=== PATIENT | male | born 1955 | race Two or more races ===

== ENCOUNTER 2018-02-05 12:27 | Inpatient (IN) | payer BC ==
[2018-02-05 13:48] VITALS: BMI 22.7
--- NOTE | 2018-02-05 14:31 | HP ---
COWS - Scale Resting Pulse: 0= [place] 80 or Below Sweatin=Flushed/Facial Moisture Restless Observation: 3= Extraneous Movement Pupil Size: 2= Moderately Dilated Bone or Joint Aches: 2= Severe Diffuse Aches Runny Nose/ Eye Tearin= Runny Nose/Eyes GI Upset > 30mins: 3= Vomiting/Diarrhea Tremor Observation: 2= Slight Tremor Visible Yawning Observation: 2= >3x During Session Anxiety or Irritability: 2=Irritable/Anxious Goose Flesh Skin: 0=Smooth Skin COWS Score: 20 Admission ROS BHS - HPI Chief Complaint: I NEED HELP TO STOP USING HEROIN,ALCOHOL,STREET METHADONE Allergies/Adverse Reactions: Allergies Allergy/AdvReac Type Severity Reaction Status Date / Time No Known Allergies Allergy Verified 02/05/18 14:26 History of Present Illness: THIS 62 YEARS OLD WITH HEROIN,ALCOHOL,STREET METHADONE,SEEKING DETOX,WITHDRAWAL SYMPTOM,LAST DETOX [facility] 06/03/13 TO 06/08/17 HEPATITIS C TREATED NICOTINE DEPENDENCE LONGEST PERIOD OF SOBRIETY 12 YEARS WEIGHT LOSS BIPOLAR DISORDER Exam Limitations: No Limitations - Ebola screening Have you traveled outside of the country in the last 21 days: No Have you had contact with anyone from an Ebola affected area: No Have you been sick,other than usual withdrawal symptoms: No Do you have a fever: No - Review of Systems Constitutional: Chills, Loss of Appetite, Malaise, Night Sweats, Changes in sleep, Weakness, Unintentional Wgt. Loss EENT: reports: Tearing, Nose Congestion Respiratory: reports: No Symptoms reported Cardiac: reports: No Symptoms Reported, Palpitations GI: reports: Diarrhea, Nausea, Vomiting, Abdominal cramping : reports: No Symptoms Reported Musculoskeletal: reports: Back Pain, Joint Pain, Muscle Pain, Neck Pain Integumentary: reports: Dryness Endocrine: reports: No Symptoms Reported Hematology: reports: No Symptoms Reported Psychiatric: reports: No Sypmtoms Reported, Judgement Intact, Mood/Affect Appropiate, other (BIPOLAR DISORDER) Patient History - Patient Medical History Hx Anemia: No Hx Asthma: No Hx Chronic Obstructive Pulmonary Disease (COPD): No Hx Cancer: No Hx Cardiac Disorders: No Hx Congestive Heart Failure: No Hx Hypertension: No Hx Hypercholesterolemia: No Hx Pacemaker: No HX Cerebrovascular Accident: No Hx Seizures: No Hx Diabetes: No Hx Gastrointestinal Disorders: No Hx Genitourinary Disorders: No Hx Sexually Transmitted Disorders: No Hx Renal Disease (ESRD): No Hx Thyroid Disease: No Hx Human Immunodeficiency Virus (HIV): No (2014 LAST NEGATIVE) Hx Hepatitis C: Yes (TREATED) Hx Depression: Yes (TAQUERIA,MARCELLE,BRENDA,LEXAPRO) Hx Suicide Attempt: No Hx Bipolar Disorder: No Hx Schizophrenia: No Other Medical History: NO SUICIDAL,NOHOMICIDAL - Patient Surgical History Past Surgical History: Yes Hx Neurologic Surgery: No Hx Cataract Extraction: No Hx Cardiac Surgery: No Hx Lung Surgery: No Hx Breast Surgery: No Hx Breast Biopsy: No Hx Abdominal Surgery: No Hx Appendectomy: No Hx Cholecystectomy: No Hx Genitourinary Surgery: No Hx Section: No Hx Orthopedic Surgery: No Other Surgical History: NASAL SX.IN 2008 Anesthesia Reaction: No - PPD History Documented Results: Positive w/o proof Implanted On Prior [facility] Admission?: No PPD to be Administered?: No - Smoking Cessation Smoking history: Current every day smoker Have you smoked in the past 12 months: Yes Aproximately how many cigarettes per day: 20 Hx Chewing Tobacco Use: No Initiated information on smoking cessation: Yes 'Breaking Loose' booklet given: 02/05/18 - Substance & Tx. History Hx Alcohol Use: Yes Hx Substance Use: Yes Substance Use Type: Alcohol, Heroin Hx Substance Use Treatment: Yes ([facility] 06/03/13 TO 06/08/13) - Substances Abused Heroin Route: Inhalation Frequency: Daily Amount used: 15 bags daily Age of first use: 19 Date of Last Use: 02/05/18 Alcohol Route: Oral Frequency: Daily Amount used: 8-9 16 [place], 2 [place], Age of first use: 19 Date of Last Use: 02/05/[address] M[address]ONE Frequency: 1-3 times last 30 days Amount used: 120 MG TAB Age of first use: 36 Date of Last Use: 02/05/18 Family Disease History - Family Disease History Family Disease History: Other: Father (ALCOHOL), Brother (DRUGS) Admission Physical Exam BHS - Vital Signs Vital Signs: Vital Signs - 24 hr 02/05/18 13:43 Temperature 97 F L Pulse Rate 58 L Respiratory 20 Rate Blood Pressure 120/64 - Physical General Appearance: Yes: Moderate Distress, Tremorous, Irritable, Sweating, Anxious HEENTM: Yes: LEONA, Pharynx Normal, Other (FX OF NASAL BONE) Respiratory: Yes: Lungs Clear, Normal Breath Sounds, No Respiratory Distress Neck: Yes: No masses,lesions,Nodules, Supple, Trachea in good position Breast: Yes: Within Normal Limits Cardiology: Yes: Within Normal Limits, Regular Rhythm, Regular Rate, S1, S2 Abdominal: Yes: Within Normal Limits, Normal Bowel Sounds, Non Tender, Flat, Soft Genitourinary: Yes: Within Normal Limits Back: Yes: Muscle Spasm Musculoskeletal: Yes: Back pain, Muscle Pain Extremities: Yes: Tremors Neurological: Yes: 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 NML intact, Fully Oriented, Alert, Motor Strength 5/5 Integumentary: Yes: Dry Lymphatic: Yes: Within Normal Limits - Diagnostic (1) Opioid dependence with withdrawal Current Visit: Yes Status: Acute (2) Alcohol dependence with uncomplicated withdrawal Current Visit: Yes Status: Acute (3) Hepatitis C Current Visit: Yes Status: Acute (4) Fracture of nasal bone Current Visit: Yes Status: Acute (5) Weight loss Current Visit: Yes Status: Acute (6) Bipolar disorder Current Visit: Yes Status: Acute Cleared for Admission [facility] - Detox or Rehab [facility] Level of Care: Medically Managed Detox Regimen/Protocol: Methadone/Librium [facility] Breath Alcohol Content Breath Alcohol Content: 0.011 Urine Drug Screen - Results Drug Screen Negative: No Urine Drug Screen Results: OPI-Opiates, BZO-Benzodiazepines, MTD-Methadone
[2018-02-05] MEDS ORDERED: LOPERAMIDE HCL 2 MG CAPSULE PO PRN (14:55)
[2018-02-05] MEDS ORDERED: guaiFENesin/D-METHORPHAN HB 10 ML UNIT-DOSE CUPS PO PRN (14:55)
[2018-02-05] MEDS ORDERED: P-EPHED 60MG/TRIPROLIDI 2.5MG TABLET PO PRN (14:55)
[2018-02-05] MEDS ORDERED: hydrOXYzine PAMOATE 50 MG CAPSULE (FP) PO PRN (14:55)
[2018-02-05] MEDS ORDERED: NICOTINE POLACRILEX 2 MG GUM BUC PRN (14:55)
[2018-02-05] MEDS ORDERED: IBUPROFEN 400 MG TABLET (FP) PO PRN (14:55)
[2018-02-05] MEDS ORDERED: MENTHOL/PHENOL 1 EACH UD MM PRN (14:55)
[2018-02-05] MEDS ORDERED: ACETAMINOPHEN 325 MG TABLET (FP) PO PRN (14:55)
[2018-02-05] MEDS ORDERED: MAG HYDROX/AL HYDROX/SIMETH 30 ML UNIT-DOSE CUP PO PRN (14:55)
[2018-02-05] MEDS ORDERED: MAGNESIUM HYDROX 2400MG/30ML ORAL SUSPENSION 30 ML CUP PO PRN (14:55)
[2018-02-05] MEDS ORDERED: MAGNESIUM CITRATE 300 ML BOTTLE PO PRN (14:55)
[2018-02-05] MEDS ORDERED: METHADONE HCL 10 MG TABLET (FOR DETOX USE ONLY) PO ONE ×2 (15:15→23:00)
[2018-02-05] MEDS ORDERED: chlordiazePOXIDE HCL 25 MG CAPSULE PO ONE (15:15)
[2018-02-05] MEDS: NICOTINE 21 MG/24 HOURS TOPICAL PATCH TD SCH (15:55)
--- NOTE | 2018-02-05 16:12 | EKG ---
Test Reason : Blood Pressure : / mmHG Vent. Rate : 055 BPM Atrial Rate : 055 BPM P-R Int : 122 ms QRS Dur : 080 ms QT Int : 434 ms P-R-T Axes : 051 -04 030 degrees QTc Int : 415 ms SINUS BRADYCARDIA OTHERWISE NORMAL ECG NO PREVIOUS ECGS AVAILABLE Confirmed by SHARMAINE BHATTI MD ([id number]) on 02/05/2018 4:12:16 PM Referred By: Confirmed By:SHARMAINE BHATTI MD
--- NOTE | 2018-02-05 17:26 | CONSULT ---
[facility] Psychiatric Consult - Data Date of interview: 02/05/18 Admission source: [facility] Identifying data: Patient is a 62 year old single male, without kids, domiciled , unemployed and receiving SSI. This is one of multiple admissions for patient. Pt. admitted to for alcohol and cocaine dependence. Substance Abuse History: - Smoking Cessation. Smoking history: Current every day smoker. Have you smoked in the past 12 months: Yes. Aproximately how many cigarettes per day: 20. Hx Chewing Tobacco Use: No. Initiated information on smoking cessation: Yes. 'Breaking Loose' booklet given: 02/05/18. - Substance & Tx. History. Hx Alcohol Use: Yes. Hx Substance Use: Yes. Substance Use Type : Alcohol, Heroin. Hx Substance Use Treatment: Yes ([facility] 06/03/13 TO 06/08/13) Medical History: Nasal sx in 2008, Hep C (treated) Psychiatric History: Patient denies h/o psychiatric hospitalizations. Patient denies current OPD. Reports h/o OPD at [facility] approximately one year ago. Diagnosis of bipolar disorder. States he has been presribed mirtzapine, abilify , ambien but was nonadherent to medications. Pt. requesting a sleep aid. Pt. denies h/o suicide attempt. Physical/Sexual Abuse/Trauma History: Denies. Mental Status Exam - Mental Status Exam Alert and Oriented to: Time, Place, Person Cognitive Function: Good Patient Appearance: Well Groomed Mood: Hopeful Affect: Mood Congruent Patient Behavior: Cooperative Speech Pattern: Clear, Appropriate Voice Loudness: Normal Thought Process: Intact, Goal Oriented Thought Disorder: Not Present Hallucinations: Denies Suicidal Ideation: Denies Homicidal Ideation: Denies Insight/Judgement: Poor Sleep: Poorly Appetite: Fair Muscle strength/Tone: Normal Gait/Station: Normal Psychiatric Findings - Problem List ([place] 1, 2,3) (1) Alcohol dependence with uncomplicated withdrawal Current Visit: Yes Status: Acute (2) Opioid dependence with withdrawal Current Visit: Yes Status: Acute (3) Insomnia Current Visit: Yes Status: Acute (4) Substance induced mood disorder Current Visit: Yes Status: Acute - Initial Treatment Plan Initial Treatment Plan: Psychoeducation provided. Detoxification in progress. Melatonin 5mg ordered for insomnia by [facility] [employer]. Will continue to monitor.
[2018-02-05] MEDS: chlordiazePOXIDE HCL 25 MG CAPSULE PO SCH ×2 (17:52→22:43)
[2018-02-05 17:58] LABS: URINE APPEARANCE SLCLOUDY; URINE BILIRUBIN NEGATIVE (<2.0 mg/dL); URINE COLOR YELLOW; URINE GLUCOSE (UA) NEGATIVE (NEGATIVE); URINE KETONE NEGATIVE (NEGATIVE); URINE LEUK ESTERASE NEGATIVE (NEGATIVE); URINE NITRITE NEGATIVE (NEGATIVE); URINE PROTEIN NEGATIVE (NEGATIVE); URINE UROBILINOGEN NEGATIVE mg/dL (0.2-1.0)
[2018-02-05] MEDS: THIAMINE HCL 100 MG TABLET (FP) PO SCH (22:43)
[2018-02-05] MEDS: MELATONIN 5 MG TABLETS PO PRN (22:45)
[2018-02-06] MEDS: chlordiazePOXIDE HCL 25 MG CAPSULE PO SCH ×4 (05:25→22:17)
[2018-02-06] MEDS ORDERED: METHADONE HCL 10 MG TABLET (FOR DETOX USE ONLY) PO SCH (10:00)
[2018-02-06 10:13] LABS: HEMATOCRIT 36.6 % (35.4-49); HEMOGLOBIN 12.5 GM/dL (11.7-16.9); MCH 30.2 pg (25.7-33.7); MCHC 34.1 g/dl (32.0-35.9); MEAN CELL VOLUME 88.7 fl (80-96); MEAN PLT VOLUME 9.8 fl (7.5-11.1); PLATELET COUNT 249 K/MM3 (134-434); RBC 4.13 M/mm3 (4.00-5.60); RDW 13.6 % (11.9-15.9); WHITE BLOOD COUNT 6.7 K/mm3 (4.0-10.0)
[2018-02-06 10:28] LABS: CHLORIDE 102 mmol/L (98-107); POTASSIUM 4.9 mmol/L (3.5-5.1); SODIUM 141 mmol/L (136-145)
[2018-02-06] MEDS: PRENATAL VITAMINS W/ FOLIC ACID TABLET (FP) PO SCH (10:33)
[2018-02-06] MEDS: NICOTINE 21 MG/24 HOURS TOPICAL PATCH TD SCH (10:33)
[2018-02-06 10:43] LABS: ALBUMIN 3.7 g/dl (3.4-5.0); ALK PHOS 76 U/L (45-117); ANION GAP 9 (8-16); BILIRUBIN,TOTAL 0.4 mg/dL (0.2-1.0); BLOOD UREA NITROGEN 17 mg/dL (7-18); CALCIUM 8.9 mg/dL (8.5-10.1); CO2 30 mmol/L (21-32); CREATININE 0.8 mg/dL (0.7-1.3); GLUCOSE,RANDOM 90 mg/dL (74-106); SGOT/AST 16 U/L (15-37); SGPT/ALT 11 U/L (12-78); TOT PROT 6.4 g/dl (6.4-8.2)
--- NOTE | 2018-02-06 13:02 | PN ---
BHS COWS - Scale Resting Pulse: 1= [place] 81-100 Sweatin= Chills/Flushing Restless Observation: 3= Extraneous Movement Pupil Size: 2= Moderately Dilated Bone or Joint Aches: 4=Acute Joint/Muscle Pain Runny Nose/ Eye Tearin= None GI Upset > 30mins: 1= Stomach Cramp Tremor Observation of Outstretched Hands: 1= Tremor [place], Not Seen Yawning Observation: 1= 1-2x During Session Anxiety or Irritability: 2=Irritable/Anxious Goose Flesh Skin: 0=Smooth Skin COWS Score: 16 BHS Progress Note (SOAP) Subjective: ANXIETY,SWEATS,STOMACH CRAMPS,SWEATS/CHILLS,INTERMITTENT SLEEP. Objective: 02/06/18 13:01 Vital Signs Temperature 96.6 F L 02/06/18 10:00 Pulse Rate 85 02/06/18 10:00 Respiratory Rate 18 02/06/18 10:00 Blood Pressure 104/63 02/06/18 10:00 O2 Sat by Pulse Oximetry (%) Laboratory Tests 02/05/18 02/05/18 02/06/18 14:30 15:46 05:45 WBC 6.7 RBC 4.13 Hgb 12.5 D Hct 36.6 MCV 88.7 MCH 30.2 MCHC 34.1 RDW 13.6 Plt Count 249 MPV 9.8 Sodium Potassium Chloride Carbon Dioxide Anion Gap BUN Creatinine Creat Clearance w eGFR Random Glucose Calcium Total Bilirubin AST ALT Alkaline Phosphatase Total Protein Albumin Urine Color Yellow Urine Appearance Slcloudy Urine pH 6.0 Ur Specific [place] 1.024 Urine Protein Negative Urine Glucose (UA) Negative Urine Ketones Negative Urine Blood Negative Urine Nitrite Negative Urine Bilirubin Negative Urine Urobilinogen Negative Ur Leukocyte Esterase Negative RPR Titer HIV 1&2 Antibody Screen Negative HIV P24 Antigen Negative 02/06/18 02/06/18 05:45 05:45 WBC RBC Hgb Hct MCV MCH MCHC RDW Plt Count MPV Sodium 141 Potassium 4.9 Chloride 102 Carbon Dioxide 30 Anion Gap 9 BUN 17 D Creatinine 0.8 Creat Clearance w eGFR > 60 Random Glucose 90 Calcium 8.9 Total Bilirubin 0.4 AST 16 ALT 11 L D Alkaline Phosphatase 76 Total Protein 6.4 Albumin 3.7 Urine Color Urine Appearance Urine pH Ur Specific [place] Urine Protein Urine Glucose (UA) Urine Ketones Urine Blood Urine Nitrite Urine Bilirubin Urine Urobilinogen Ur Leukocyte Esterase RPR Titer Nonreactive HIV 1&2 Antibody Screen HIV P24 Antigen Assessment: 02/06/18 13:01 WITHDRAWAL SX Plan: CONTINUE DETOX INCREASE PO FLUIDS
--- NOTE | 2018-02-06 13:05 | PN ---
[facility] CIWA - CIWA Score Nausea/Vomitin-No Nausea/No Vomiting Muscle Tremors: 4-Moderate,w/Arms Extend Anxiety: 4-Mod. Anxious/Guarded Agitation: 4-Moderately Restless Paroxysmal Sweats: 1-Minimal Palms Moist Orientation: 0-Oriented Tacttile Disturbances: 0-None Auditory Disturbances: 0-None Visual Disturbances: 0-None Headache: 0-None Present CIWA-Ar Total Score: 13
[2018-02-06] MEDS: chlordiazePOXIDE HCL 25 MG CAPSULE PO PRN (13:52)
[2018-02-06] MEDS: THIAMINE HCL 100 MG TABLET (FP) PO SCH (22:17)
[2018-02-07] MEDS: chlordiazePOXIDE HCL 25 MG CAPSULE PO SCH ×2 (05:43→10:20)
[2018-02-07] MEDS: PRENATAL VITAMINS W/ FOLIC ACID TABLET (FP) PO SCH (09:56)
[2018-02-07] MEDS: METHADONE HCL 5 MG TABLET (FOR DETOX USE ONLY) PO SCH (09:56)
[2018-02-07] MEDS: NICOTINE 21 MG/24 HOURS TOPICAL PATCH TD SCH (09:57)
[2018-02-07] MEDS: chlordiazePOXIDE HCL 25 MG CAPSULE PO PRN (15:01)
[2018-02-07] MEDS ORDERED: diphenhydrAMINE HCL 25 MG CAPSULE (FP) PO PRN (15:33)
[2018-02-07] MEDS: chlordiazePOXIDE 5 MG CAPSULE PO SCH ×2 (17:05→22:17)
--- NOTE | 2018-02-07 17:34 | PN ---
BHS COWS - Scale Resting Pulse: 0= [place] 80 or Below Sweatin= No chills or Flushing Restless Observation: 1= Difficult to Sit Still Pupil Size: 0= Normal to Room Light Bone or Joint Aches: 0= None Runny Nose/ Eye Tearin= Runny Nose/Eyes GI Upset > 30mins: 1= Stomach Cramp Tremor Observation of Outstretched Hands: 0= None Yawning Observation: 2= >3x During Session Anxiety or Irritability: 2=Irritable/Anxious Goose Flesh Skin: 3=Piloerection COWS Score: 11 BHS Progress Note (SOAP) Subjective: Stomach Cramping, Constipation, Anxious, Interrupted Sleep. Objective: PATIENT A & O X 2 (UNCERTAIN ABOUT CURRENT DAY / DATE). PATIENT OBSERVED AMBULATING ON UNIT. NO ACUTE DISTRESS. 02/07/18 17:32 Vital Signs Temperature 96.9 F L 02/07/18 17:27 Pulse Rate 73 02/07/18 17:27 Respiratory Rate 16 02/07/18 17:27 Blood Pressure 105/73 02/07/18 17:27 O2 Sat by Pulse Oximetry (%) Laboratory Tests 02/05/18 02/05/18 02/06/18 14:30 15:46 05:45 WBC 6.7 RBC 4.13 Hgb 12.5 D Hct 36.6 MCV 88.7 MCH 30.2 MCHC 34.1 RDW 13.6 Plt Count 249 MPV 9.8 Sodium Potassium Chloride Carbon Dioxide Anion Gap BUN Creatinine Creat Clearance w eGFR Random Glucose Calcium Total Bilirubin AST ALT Alkaline Phosphatase Total Protein Albumin Urine Color Yellow Urine Appearance Slcloudy Urine pH 6.0 Ur Specific [place] 1.024 Urine Protein Negative Urine Glucose (UA) Negative Urine Ketones Negative Urine Blood Negative Urine Nitrite Negative Urine Bilirubin Negative Urine Urobilinogen Negative Ur Leukocyte Esterase Negative RPR Titer HIV 1&2 Antibody Screen Negative HIV P24 Antigen Negative 02/06/18 02/06/18 05:45 05:45 WBC RBC Hgb Hct MCV MCH MCHC RDW Plt Count MPV Sodium 141 Potassium 4.9 Chloride 102 Carbon Dioxide 30 Anion Gap 9 BUN 17 D Creatinine 0.8 Creat Clearance w eGFR > 60 Random Glucose 90 Calcium 8.9 Total Bilirubin 0.4 AST 16 ALT 11 L D Alkaline Phosphatase 76 Total Protein 6.4 Albumin 3.7 Urine Color Urine Appearance Urine pH Ur Specific [place] Urine Protein Urine Glucose (UA) Urine Ketones Urine Blood Urine Nitrite Urine Bilirubin Urine Urobilinogen Ur Leukocyte Esterase RPR Titer Nonreactive HIV 1&2 Antibody Screen HIV P24 Antigen LABS NOTED. Assessment: 02/07/18 17:33 WITHDRAWAL SYMPTOMS. Plan: CONTINUE DETOX. INCREASE DAILY PO FLUID INTAKE. PRN MOM FOR CONSTIPATION.
[2018-02-07] MEDS: THIAMINE HCL 100 MG TABLET (FP) PO SCH (22:17)
[2018-02-07] MEDS: MELATONIN 5 MG TABLETS PO PRN (22:18)
[2018-02-08] MEDS: chlordiazePOXIDE 5 MG CAPSULE PO SCH ×2 (05:51→10:23)
[2018-02-08] MEDS: NICOTINE 21 MG/24 HOURS TOPICAL PATCH TD SCH (10:23)
[2018-02-08] MEDS: PRENATAL VITAMINS W/ FOLIC ACID TABLET (FP) PO SCH (10:23)
[2018-02-08] MEDS: METHADONE HCL 5 MG TABLET (FOR DETOX USE ONLY) PO SCH (10:23)
--- NOTE | 2018-02-08 14:42 | PN ---
BHS Progress Note (SOAP) Subjective: ALERT O X 3. SLIGHT ANXIETY,FATIGUE. Objective: 02/08/18 14:42 Vital Signs 02/08/18 02/08/18 10:42 14:04 Temperature 96.0 F L 96.4 F L Pulse Rate 78 72 Respiratory 18 18 Rate Blood Pressure 117/71 108/70 Laboratory Tests 02/05/18 02/05/18 02/06/18 14:30 15:46 05:45 WBC 6.7 RBC 4.13 Hgb 12.5 D Hct 36.6 MCV 88.7 MCH 30.2 MCHC 34.1 RDW 13.6 Plt Count 249 MPV 9.8 Sodium Potassium Chloride Carbon Dioxide Anion Gap BUN Creatinine Creat Clearance w eGFR Random Glucose Calcium Total Bilirubin AST ALT Alkaline Phosphatase Total Protein Albumin Urine Color Yellow Urine Appearance Slcloudy Urine pH 6.0 Ur Specific [place] 1.024 Urine Protein Negative Urine Glucose (UA) Negative Urine Ketones Negative Urine Blood Negative Urine Nitrite Negative Urine Bilirubin Negative Urine Urobilinogen Negative Ur Leukocyte Esterase Negative RPR Titer HIV 1&2 Antibody Screen Negative HIV P24 Antigen Negative 02/06/18 02/06/18 05:45 05:45 WBC RBC Hgb Hct MCV MCH MCHC RDW Plt Count MPV Sodium 141 Potassium 4.9 Chloride 102 Carbon Dioxide 30 Anion Gap 9 BUN 17 D Creatinine 0.8 Creat Clearance w eGFR > 60 Random Glucose 90 Calcium 8.9 Total Bilirubin 0.4 AST 16 ALT 11 L D Alkaline Phosphatase 76 Total Protein 6.4 Albumin 3.7 Urine Color Urine Appearance Urine pH Ur Specific [place] Urine Protein Urine Glucose (UA) Urine Ketones Urine Blood Urine Nitrite Urine Bilirubin Urine Urobilinogen Ur Leukocyte Esterase RPR Titer Nonreactive HIV 1&2 Antibody Screen HIV P24 Antigen Assessment: 02/08/18 14:42 WITHDRAWAL SX Plan: CONTINUE DETOX
[2018-02-08] MEDS: chlordiazePOXIDE HCL 10 MG CAPSULE PO SCH ×2 (16:42→22:16)
[2018-02-08] MEDS: THIAMINE HCL 100 MG TABLET (FP) PO SCH (22:16)
[2018-02-08] MEDS: MELATONIN 5 MG TABLETS PO PRN (22:17)
[2018-02-09] MEDS: chlordiazePOXIDE HCL 10 MG CAPSULE PO SCH ×2 (05:36→10:21)
[2018-02-09 06:20] VITALS: TEMP 97.4
[2018-02-09 09:41] VITALS: BP 117/79; PULSE 67
[2018-02-09] MEDS ORDERED: METHADONE HCL 10 MG TABLET (FOR DETOX USE ONLY) PO SCH (10:00)
[2018-02-09] MEDS: PRENATAL VITAMINS W/ FOLIC ACID TABLET (FP) PO SCH (10:21)
[2018-02-09] MEDS: NICOTINE 21 MG/24 HOURS TOPICAL PATCH TD SCH (10:22)
[2018-02-10] MEDS ORDERED: METHADONE HCL 5 MG TABLET (FOR DETOX USE ONLY) PO SCH (06:00)
== END 2018-02-09 11:30 | disposition left against medical advice (07) | DRG 770 ==
LOC: YASAS 12:27 → Y3N 14:58
PROVIDERS: ADMIT Internal Medicine; ATTEND Internal Medicine
PROC: HZ2ZZZZ Detoxification Services for Substance Abuse Treatment (ICD-10-PCS; principal; 2018-02-05)
DX: F11.23 Opioid dependence with withdrawal (principal); F10.230 Alcohol dependence with withdrawal, uncomplicated; F31.9 Bipolar disorder, unspecified; F19.24 Other psychoactive substance dependence with psychoactive substance-induced mood disorder; B18.2 Chronic viral hepatitis C; R63.4 Abnormal weight loss; G47.00 Insomnia, unspecified; Z68.22 Body mass index [BMI] 22.0-22.9, adult; R76.11 Nonspecific reaction to tuberculin skin test without active tuberculosis
CPT/HCPCS: 36415; 71046-TC-FY; 80053; 81003; 85027; 86593; 87389; 93005; 93010

== ENCOUNTER 2018-03-17 11:16 | Inpatient (IN) | payer BC ==
[2018-03-17 11:38] VITALS: BMI 22.4
--- NOTE | 2018-03-17 14:12 | HP ---
COWS - Scale Resting Pulse: 0= [place] 80 or Below Sweatin=Flushed/Facial Moisture Restless Observation: 1= Difficult to Sit Still Pupil Size: 2= Moderately Dilated Bone or Joint Aches: 1= Mild Discomfort Runny Nose/ Eye Tearin= Runny Nose/Eyes GI Upset > 30mins: 2= Nausea/Diarrhea (nausea) Tremor Observation: 2= Slight Tremor Visible Yawning Observation: 0= None Anxiety or Irritability: 1=Feels Anxious/Irritable Goose Flesh Skin: 0=Smooth Skin COWS Score: 13 CIWA Score - CIWA Score Nausea/Vomitin Muscle Tremors: 4-Moderate,w/Arms Extend Anxiety: 1-Mildly Anxious Agitation: 1-Slight > Activity Paroxysmal Sweats: 4-Forehead w/Sweat Beads Orientation: 0-Oriented Tacttile Disturbances: 0-None Auditory Disturbances: 0-None Visual Disturbances: 0-None Headache: 2-Mild CIWA-Ar Total Score: 14 Admission ROS [facility] - HPI Chief Complaint: here for alcohol and heroin withdrawal. Allergies/Adverse Reactions: Allergies Allergy/AdvReac Type Severity Reaction Status Date / Time No Known Allergies Allergy Verified 03/17/18 13:18 History of Present Illness: 62 YOM w/ alcohol use since age 19 and heroin use since age 19. Denies cocaine or marijuana use. Smokes cigarettes. Denies seizures or blackouts. Treated for Hepatitis C. Hx. PPD w/ negative chest x-ray. Denies other significant PMH. - Ebola screening Have you traveled outside of the country in the last 21 days: No Have you had contact with anyone from an Ebola affected area: No Have you been sick,other than usual withdrawal symptoms: No Do you have a fever: No - Review of Systems Constitutional: Chills, Changes in sleep (Difficulty falling asleep), Unintentional Wgt. Loss (10 lbs in past month) EENT: reports: Blurred Vision (Wears glasses.) Respiratory: reports: No Symptoms reported GI: reports: No Symptoms Reported, Other (Hx. Hepatitis C and treated) : reports: No Symptoms Reported Musculoskeletal: reports: Back Pain (r/t withdrawal), Joint Pain (r/t withdrawal ) Integumentary: reports: No Symptoms Reported Neuro: reports: Headache (r/t withdrawal) Endocrine: reports: No Symptoms Reported Hematology: reports: No Symptoms Reported Psychiatric: reports: Judgement Intact, Orientated x3, Anxious (r/t withdrawal) Patient History - Patient Medical History Hx Anemia: No Hx Asthma: No Hx Chronic Obstructive Pulmonary Disease (COPD): No Hx Cancer: No Hx Cardiac Disorders: No Hx Congestive Heart Failure: No Hx Hypertension: No Hx Hypercholesterolemia: No Hx Pacemaker: No HX Cerebrovascular Accident: No Hx Seizures: No Hx Diabetes: No Hx Gastrointestinal Disorders: No Hx Liver Disease: No Hx Genitourinary Disorders: No Hx Sexually Transmitted Disorders: Yes Hx Renal Disease (ESRD): No Hx Thyroid Disease: No Hx Human Immunodeficiency Virus (HIV): No (2014 LAST NEGATIVE) Hx Hepatitis C: Yes (TREATED ) Hx Depression: No Hx Suicide Attempt: No Hx Bipolar Disorder: No Hx Schizophrenia: No - Patient Surgical History Past Surgical History: Yes Hx Neurologic Surgery: No Hx Cataract Extraction: No Hx Cardiac Surgery: No Hx Lung Surgery: No Hx Breast Surgery: No Hx Breast Biopsy: No Hx Abdominal Surgery: No Hx Appendectomy: No Hx Cholecystectomy: No Hx Genitourinary Surgery: No Hx Section: No Hx Orthopedic Surgery: No Other Surgical History: NASAL SX.IN 2008 Anesthesia Reaction: No - PPD History Previous Implant?: Yes Documented Results: Positive w/o proof Implanted On Prior [facility] Admission?: No Date: 02/06/18 (CXR negative) PPD to be Administered?: No - Smoking Cessation Smoking history: Current every day smoker Have you smoked in the past 12 months: Yes Aproximately how many cigarettes per day: 7 Hx Chewing Tobacco Use: No Initiated information on smoking cessation: Yes 'Breaking Loose' booklet given: 03/17/18 - Substance & Tx. History Hx Alcohol Use: Yes Hx Substance Use: Yes Substance Use Type: Alcohol, Heroin, Opiates Hx Substance Use Treatment: Yes (several prior detox's, hx tx in [facility] - last 8 mths ago.) - Substances Abused Heroin Route: Inhalation Frequency: Daily Amount used: 10-15 bags Age of first use: 19 Date of Last Use: 03/17/18 (5 am) Alcohol-beer/vodka Route: Oral Frequency: Daily Amount used: 2-6 pks./1 pt. Age of first use: 19 Date of Last Use: 03/17/18 (9 am) Non-Rx Methadone Route: Oral Frequency: 1-3 times last 30 days Amount used: 10 mg Age of first use: 62 Date of Last Use: 03/14/18 Family Disease History - Family Disease History Family Disease History: Other: Father (ALCOHOL), Brother (DRUGS) Admission Physical Exam [facility] - Vital Signs Vital Signs: Vital Signs - 24 hr 03/17/18 11:34 Temperature 97 F L Pulse Rate 60 Respiratory 20 Rate Blood Pressure 116/71 - Physical General Appearance: Yes: Appropriately Dressed, Tremorous, Sweating, Anxious HEENTM: Yes: EOMI, Hearing grossly Normal, Normocephalic, Normal Voice, [place] Respiratory: Yes: Chest Non-Tender, Lungs Clear, Normal Breath Sounds, No Respiratory Distress Neck: Yes: No masses,lesions,Nodules, Supple Breast: Yes: Breast Exam Deferred Cardiology: Yes: Regular Rhythm, Regular Rate, S1, S2 Abdominal: Yes: Normal Bowel Sounds, Non Tender, Flat, Soft Genitourinary: Yes: Within Normal Limits Musculoskeletal: Yes: full range of Motion, Gait Steady Extremities: Yes: Normal Capillary Refill, Normal Range of Motion, Non-Tender, Tremors Neurological: 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: 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 NML intact, Fully Oriented, Motor Strength 5/5 Integumentary: Yes: Normal Color, Dry, Warm - Diagnostic (1) Alcohol dependence with uncomplicated withdrawal Current Visit: Yes Status: Acute (2) Insomnia Current Visit: Yes Status: Chronic Qualifiers: Insomnia type: unspecified Qualified Code(s): G47.00 - Insomnia, unspecified (3) Opioid dependence with withdrawal Current Visit: Yes Status: Acute (4) Weight loss Current Visit: Yes Status: Acute (5) Nicotine dependence unspecified, with withdrawal Current Visit: Yes Status: Acute Qualifiers: Nicotine product type: cigarettes Qualified Code(s): F17.213 - Nicotine dependence, cigarettes, with withdrawal Cleared for Admission [facility] - Detox or Rehab [facility] Level of Care: Medically Managed Detox Regimen/Protocol: Methadone/Librium [facility] Breath Alcohol Content Breath Alcohol Content: 0.011 Urine Drug Screen - Results Drug Screen Negative: No Urine Drug Screen Results: ISAAC-Cocaine, OPI-Opiates, BZO-Benzodiazepines, MTD- Methadone, OXY-Oxycodone
[2018-03-17] MEDS ORDERED: LOPERAMIDE HCL 2 MG CAPSULE PO PRN (14:28)
[2018-03-17] MEDS ORDERED: hydrOXYzine PAMOATE 50 MG CAPSULE (FP) PO PRN (14:28)
[2018-03-17] MEDS ORDERED: guaiFENesin/D-METHORPHAN HB 10 ML UNIT-DOSE CUPS PO PRN (14:28)
[2018-03-17] MEDS ORDERED: chlordiazePOXIDE HCL 25 MG CAPSULE PO PRN (14:28)
[2018-03-17] MEDS ORDERED: ACETAMINOPHEN 325 MG TABLET (FP) PO PRN ×2 (14:28→14:52)
[2018-03-17] MEDS ORDERED: MAGNESIUM CITRATE 300 ML BOTTLE PO PRN (14:28)
[2018-03-17] MEDS ORDERED: MAGNESIUM HYDROX 2400MG/30ML ORAL SUSPENSION 30 ML CUP PO PRN (14:28)
[2018-03-17] MEDS ORDERED: MENTHOL/PHENOL 1 EACH UD MM PRN (14:28)
[2018-03-17] MEDS ORDERED: P-EPHED 60MG/TRIPROLIDI 2.5MG TABLET PO PRN (14:28)
[2018-03-17] MEDS ORDERED: NICOTINE POLACRILEX 2 MG GUM BUC PRN (14:28)
[2018-03-17] MEDS ORDERED: IBUPROFEN 400 MG TABLET (FP) PO PRN (14:28)
[2018-03-17] MEDS ORDERED: METHADONE HCL 10 MG TABLET (FOR DETOX USE ONLY) PO ONE ×2 (14:50→23:00)
[2018-03-17] MEDS: MAG HYDROX/AL HYDROX/SIMETH 30 ML UNIT-DOSE CUP PO PRN (15:49)
[2018-03-17] MEDS: CYCLOBENZAPRINE HCL 5 MG TABLET PO PRN ×2 (15:49→22:24)
--- NOTE | 2018-03-17 16:29 | CONSULT ---
[facility] - Data Date of interview: 03/17/18 [facility] Identifying data: Patient is a 62 year old single male, father of three, unemployed, domiciled, and supported by [facility]. This is one of multiple admissions for patient. Pt. admitted to for alcohol and opiate dependence. Substance Abuse History: - Smoking Cessation. Smoking history: Current every day smoker. Have you smoked in the past 12 months: Yes. Aproximately how many cigarettes per day: 7. Hx Chewing Tobacco Use: No. Initiated information on smoking cessation: Yes. 'Breaking Loose' booklet given: 03/17/18. - Substance & Tx. History. Hx Alcohol Use: Yes. Hx Substance Use: Yes. Substance Use Type : Alcohol, Heroin, Opiates. Hx Substance Use Treatment: Yes (several prior detox's, hx tx in [facility] - last 8 mths ago.). - Substances Abused. Heroin. Route: Inhalation. Frequency: Daily. Amount used: 10-15 bags. Age of first use: 19. Date of Last Use: 03/17/18 (5 am). Alcohol-beer/vodka. Route: Oral. Frequency: Daily. Amount used: 2-6 pks./1 pt. Age of first use: 19. Date of Last Use: 03/17/18 (9 am). Non-Rx Methadone. Route: Oral. Frequency: 1-3 times last 30 days. Amount used: 10 mg. Age of first use: 62. Date of Last Use: 03/14/18 Medical History: Nasal sx in 2008, Hep C (treated) Psychiatric History: Patient denies h/o psychiatric hospitalizations. Patient denies current OPD. Reports h/o OPD at [facility] approximately one year ago. Reports being diagnosed with anxiety and bipolar disorder but disagrees with both diagnosis. States he has been presribed mirtzapine, abilify, and lexapro but was nonadherent to medications. Pt. requesting a sleep aid. Pt. has taken ambien with good effect but would prefer a medication that does not require a prescription Pt. denies h/o suicide attempt. Physical/Sexual Abuse/Trauma History: Denies. Mental Status Exam - Mental Status Exam Alert and Oriented to: Time, Place, Person Cognitive Function: Good Patient Appearance: Well Groomed Mood: Hopeful, Euthymic Affect: Mood Congruent Patient Behavior: Cooperative Speech Pattern: Appropriate Voice Loudness: Normal Thought Process: Intact, Goal Oriented Thought Disorder: Not Present Hallucinations: Denies Suicidal Ideation: Denies Homicidal Ideation: Denies Insight/Judgement: Poor Sleep: Poorly Appetite: Fair Muscle strength/Tone: Normal Gait/Station: Normal Psychiatric Findings - Problem List ([place] 1, 2,3) (1) Alcohol dependence with uncomplicated withdrawal Current Visit: Yes Status: Acute (2) Opioid dependence with withdrawal Current Visit: Yes Status: Acute (3) Nicotine dependence Current Visit: Yes Status: Chronic (4) Substance-induced sleep disorder Current Visit: Yes Status: Acute - Initial Treatment Plan Initial Treatment Plan: Psychoeducation provided. Detoxification in progress. Melatonin 5mg ordered by [employer]. Observation.
[2018-03-17] MEDS: chlordiazePOXIDE HCL 25 MG CAPSULE PO SCH ×2 (17:12→22:24)
[2018-03-17] MEDS: THIAMINE HCL 100 MG TABLET (FP) PO SCH (22:24)
[2018-03-18] MEDS: chlordiazePOXIDE HCL 25 MG CAPSULE PO SCH ×4 (05:22→22:08)
[2018-03-18] MEDS: MAG HYDROX/AL HYDROX/SIMETH 30 ML UNIT-DOSE CUP PO PRN ×2 (08:12→17:36)
[2018-03-18] MEDS ORDERED: METHADONE HCL 10 MG TABLET (FOR DETOX USE ONLY) PO SCH (10:00)
[2018-03-18] MEDS: PRENATAL VITAMINS W/ FOLIC ACID TABLET (FP) PO SCH (10:22)
[2018-03-18] MEDS: NICOTINE 14 MG/24 HOURS TOPICAL PATCH TD SCH (10:23)
--- NOTE | 2018-03-18 10:47 | EKG ---
Test Reason : Blood Pressure : / mmHG Vent. Rate : 048 BPM Atrial Rate : 048 BPM P-R Int : 136 ms QRS Dur : 084 ms QT Int : 454 ms P-R-T Axes : 045 -04 024 degrees QTc Int : 405 ms SINUS BRADYCARDIA OTHERWISE NORMAL ECG WHEN COMPARED WITH ECG OF 05-FEB-2018 15:50, NO SIGNIFICANT CHANGE WAS FOUND Confirmed by JON BARCENAS MD ([id number]) on 03/18/2018 10:47:22 AM Referred By: Confirmed By:JON BARCENAS MD
[2018-03-18 11:07] LABS: HEMATOCRIT 42.6 % (35.4-49); HEMOGLOBIN 14.3 GM/dL (11.7-16.9); MCH 30.1 pg (25.7-33.7); MCHC 33.7 g/dl (32.0-35.9); MEAN CELL VOLUME 89.4 fl (80-96); MEAN PLT VOLUME 9.7 fl (7.5-11.1); PLATELET COUNT 234 K/MM3 (134-434); RBC 4.77 M/mm3 (4.00-5.60); RDW 13.6 % (11.9-15.9); WHITE BLOOD COUNT 7.2 K/mm3 (4.0-10.0)
--- NOTE | 2018-03-18 11:23 | PN ---
[facility]HS COWS - Scale Resting Pulse: 0= [place] 80 or Below Sweatin=Flushed/Facial Moisture Restless Observation: 1= Difficult to Sit Still Pupil Size: 1= Pupils >than Normal Bone or Joint Aches: 2= Severe Diffuse Aches Runny Nose/ Eye Tearin= Nasal Congestion GI Upset > 30mins: 1= Stomach Cramp Tremor Observation of Outstretched Hands: 2= Slight Tremor Visible Yawning Observation: 0= None Anxiety or Irritability: 1=Feels Anxious/Irritable Goose Flesh Skin: 0=Smooth Skin COWS Score: 11 BHS Progress Note (SOAP) Subjective: interrupted sleep, sweats, shakes ,heartburn Objective: 03/18/18 11:23 Vital Signs Temperature 97.5 F L 03/18/18 09:16 Pulse Rate 67 03/18/18 09:16 Respiratory Rate 16 03/18/18 09:16 Blood Pressure 101/59 03/18/18 09:16 O2 Sat by Pulse Oximetry (%) Laboratory Tests 03/18/18 06:00 WBC 7.2 RBC 4.77 Hgb 14.3 D Hct 42.6 D MCV 89.4 MCH 30.1 MCHC 33.7 RDW 13.6 Plt Count 234 MPV 9.7 Assessment: 03/18/18 11:35 withdrawal sx's gerd 03/18/18 11:37 Plan: cont. detox increase fluids zantac 150mg bid f/up pending labs
[2018-03-18] MEDS ORDERED: RANITIDINE HCL 150 MG TABLET (FP) PO ONE (12:10)
[2018-03-18 12:15] LABS: CHLORIDE 105 mmol/L (98-107); SODIUM 141 mmol/L (136-145)
[2018-03-18 12:56] LABS: ALBUMIN 4.1 g/dl (3.4-5.0); ALK PHOS 79 U/L (45-117); ANION GAP 10 (8-16); BILIRUBIN,TOTAL 0.4 mg/dL (0.2-1.0); BLOOD UREA NITROGEN 17 mg/dL (7-18); CO2 26 mmol/L (21-32); CREATININE 1.2 mg/dL (0.7-1.3); GLUCOSE,RANDOM 90 mg/dL (74-106); SGOT/AST 16 U/L (15-37); SGPT/ALT 15 U/L (12-78); TOT PROT 7.5 g/dl (6.4-8.2)
[2018-03-18 15:26] LABS: URINE APPEARANCE CLEAR; URINE BILIRUBIN NEGATIVE (<2.0 mg/dL); URINE COLOR LTYELLOW; URINE GLUCOSE (UA) NEGATIVE (NEGATIVE); URINE KETONE NEGATIVE (NEGATIVE); URINE LEUK ESTERASE NEGATIVE (NEGATIVE); URINE NITRITE NEGATIVE (NEGATIVE); URINE PROTEIN NEGATIVE (NEGATIVE); URINE UROBILINOGEN NEGATIVE mg/dL (0.2-1.0)
[2018-03-18] MEDS: RANITIDINE HCL 150 MG TABLET (FP) PO SCH (22:08)
[2018-03-18] MEDS: THIAMINE HCL 100 MG TABLET (FP) PO SCH (22:08)
[2018-03-18] MEDS: MELATONIN 5 MG TABLETS PO PRN (22:24)
[2018-03-19] MEDS: chlordiazePOXIDE HCL 25 MG CAPSULE PO SCH ×2 (05:47→10:11)
[2018-03-19] MEDS: MAG HYDROX/AL HYDROX/SIMETH 30 ML UNIT-DOSE CUP PO PRN (08:07)
[2018-03-19] MEDS: RANITIDINE HCL 150 MG TABLET (FP) PO SCH ×2 (10:10→22:02)
[2018-03-19] MEDS: PRENATAL VITAMINS W/ FOLIC ACID TABLET (FP) PO SCH (10:10)
[2018-03-19] MEDS: METHADONE HCL 5 MG TABLET (FOR DETOX USE ONLY) PO SCH (10:11)
[2018-03-19] MEDS: NICOTINE 14 MG/24 HOURS TOPICAL PATCH TD SCH (10:12)
[2018-03-19] MEDS: CYCLOBENZAPRINE HCL 5 MG TABLET PO PRN ×2 (10:15→17:24)
--- NOTE | 2018-03-19 12:11 | PN ---
[facility] CIWA - CIWA Score Nausea/Vomitin-No Nausea/No Vomiting Muscle Tremors: 1-None Visible, but [place] Anxiety: 1-Mildly Anxious Agitation: 0-Normal Activity Paroxysmal Sweats: No Perspiration Orientation: 0-Oriented Tacttile Disturbances: 0-None Auditory Disturbances: 0-None Visual Disturbances: 0-None Headache: 0-None Present CIWA-Ar Total Score: 2 [facility] COWS - Scale Resting Pulse: 0= [place] 80 or Below Sweatin= No chills or Flushing Restless Observation: 5= Unable to Sit Still Pupil Size: 0= Normal to Room Light Bone or Joint Aches: 0= None Runny Nose/ Eye Tearin= None Tremor Observation of Outstretched Hands: 1= Tremor [place], Not Seen Yawning Observation: 0= None Anxiety or Irritability: 1=Feels Anxious/Irritable Goose Flesh Skin: 0=Smooth Skin [facility] Progress Note (SOAP) Subjective: PATIENT C/O MILD ANXIETY AND TREMORS. DENIES CP/SOB AND DIZZINESS. Objective: 03/19/18 12:14 Laboratory Tests 03/18/18 03/18/18 03/18/18 06:00 06:00 06:00 WBC 7.2 RBC 4.77 Hgb 14.3 D Hct 42.6 D MCV 89.4 MCH 30.1 MCHC 33.7 RDW 13.6 Plt Count 234 MPV 9.7 Sodium 141 Potassium 5.0 Chloride 105 Carbon Dioxide 26 Anion Gap 10 BUN 17 Creatinine 1.2 D Creat Clearance w eGFR > 60 Random Glucose 90 Calcium 9.0 Total Bilirubin 0.4 AST 16 ALT 15 D Alkaline Phosphatase 79 Total Protein 7.5 Albumin 4.1 Urine Color Urine Appearance Urine pH Ur Specific [place] Urine Protein Urine Glucose (UA) Urine Ketones Urine Blood Urine Nitrite Urine Bilirubin Urine Urobilinogen Ur Leukocyte Esterase RPR Titer Nonreactive 03/18/18 09:20 WBC RBC Hgb Hct MCV MCH MCHC RDW Plt Count MPV Sodium Potassium Chloride Carbon Dioxide Anion Gap BUN Creatinine Creat Clearance w eGFR Random Glucose Calcium Total Bilirubin AST ALT Alkaline Phosphatase Total Protein Albumin Urine Color Ltyellow Urine Appearance Clear Urine pH 6.0 Ur Specific [place] 1.014 Urine Protein Negative Urine Glucose (UA) Negative Urine Ketones Negative Urine Blood Negative Urine Nitrite Negative Urine Bilirubin Negative Urine Urobilinogen Negative Ur Leukocyte Esterase Negative RPR Titer Vital Signs Temperature 97.7 F 03/19/18 10:09 Pulse Rate 64 03/19/18 10:09 Respiratory Rate 16 03/19/18 10:09 Blood Pressure 107/62 03/19/18 10:09 O2 Sat by Pulse Oximetry (%) OBJ: GENERAL: ALERT AND ORIENTED X 3. IN NAD SKIN: WARM AND DRY EXT: NO EDEMA, FULL ROM. MILD TREMORS FELT PSYCH: + MILD ANXIETY A/P: WITHDRAWAL SYMPTOMS ETOH/HEROIN WITHDRAWAL SYMPTOMS ENCOURAGE ORAL HYDRATION CONTINUE DETOX CONTINUE TO MONITOR CLINICALLY
[2018-03-19] MEDS: chlordiazePOXIDE 5 MG CAPSULE PO SCH ×2 (17:23→22:02)
[2018-03-19] MEDS: THIAMINE HCL 100 MG TABLET (FP) PO SCH (22:03)
[2018-03-20] MEDS: chlordiazePOXIDE 5 MG CAPSULE PO SCH ×2 (06:12→10:53)
--- NOTE | 2018-03-20 10:43 | PN ---
BHS Progress Note (SOAP) Subjective: SLIGHT ANXIETY,SWEATS,DETOX PROTOCOL PROCEEDING WELL. Objective: 03/20/18 10:43 Vital Signs 03/20/18 03/20/18 03:30 06:00 Temperature 97.3 F L Pulse Rate 62 Respiratory 18 18 Rate Blood Pressure 130/76 Laboratory Tests 03/18/18 03/18/18 03/18/18 06:00 06:00 06:00 WBC 7.2 RBC 4.77 Hgb 14.3 D Hct 42.6 D MCV 89.4 MCH 30.1 MCHC 33.7 RDW 13.6 Plt Count 234 MPV 9.7 Sodium 141 Potassium 5.0 Chloride 105 Carbon Dioxide 26 Anion Gap 10 BUN 17 Creatinine 1.2 D Creat Clearance w eGFR > 60 Random Glucose 90 Calcium 9.0 Total Bilirubin 0.4 AST 16 ALT 15 D Alkaline Phosphatase 79 Total Protein 7.5 Albumin 4.1 Urine Color Urine Appearance Urine pH Ur Specific [place] Urine Protein Urine Glucose (UA) Urine Ketones Urine Blood Urine Nitrite Urine Bilirubin Urine Urobilinogen Ur Leukocyte Esterase RPR Titer Nonreactive 03/18/18 09:20 WBC RBC Hgb Hct MCV MCH MCHC RDW Plt Count MPV Sodium Potassium Chloride Carbon Dioxide Anion Gap BUN Creatinine Creat Clearance w eGFR Random Glucose Calcium Total Bilirubin AST ALT Alkaline Phosphatase Total Protein Albumin Urine Color Ltyellow Urine Appearance Clear Urine pH 6.0 Ur Specific [place] 1.014 Urine Protein Negative Urine Glucose (UA) Negative Urine Ketones Negative Urine Blood Negative Urine Nitrite Negative Urine Bilirubin Negative Urine Urobilinogen Negative Ur Leukocyte Esterase Negative RPR Titer Assessment: 03/20/18 10:43 WITHDRAWAL SX Plan: CONTINUE DETOX
[2018-03-20] MEDS: RANITIDINE HCL 150 MG TABLET (FP) PO SCH ×2 (10:52→22:05)
[2018-03-20] MEDS: METHADONE HCL 5 MG TABLET (FOR DETOX USE ONLY) PO SCH (10:52)
[2018-03-20] MEDS: NICOTINE 14 MG/24 HOURS TOPICAL PATCH TD SCH (10:52)
[2018-03-20] MEDS: PRENATAL VITAMINS W/ FOLIC ACID TABLET (FP) PO SCH (10:52)
[2018-03-20] MEDS: chlordiazePOXIDE HCL 10 MG CAPSULE PO SCH ×2 (17:23→22:05)
[2018-03-20] MEDS: THIAMINE HCL 100 MG TABLET (FP) PO SCH (22:05)
[2018-03-20] MEDS: MELATONIN 5 MG TABLETS PO PRN (22:05)
[2018-03-21] MEDS: chlordiazePOXIDE HCL 10 MG CAPSULE PO SCH ×2 (06:04→10:40)
[2018-03-21] MEDS: CYCLOBENZAPRINE HCL 5 MG TABLET PO PRN (06:06)
[2018-03-21] MEDS ORDERED: METHADONE HCL 10 MG TABLET (FOR DETOX USE ONLY) PO SCH (10:00)
[2018-03-21] MEDS: RANITIDINE HCL 150 MG TABLET (FP) PO SCH ×2 (10:39→22:42)
[2018-03-21] MEDS: PRENATAL VITAMINS W/ FOLIC ACID TABLET (FP) PO SCH (10:39)
[2018-03-21] MEDS: NICOTINE 14 MG/24 HOURS TOPICAL PATCH TD SCH (10:40)
--- NOTE | 2018-03-21 12:05 | PN ---
BHS Progress Note (SOAP) Subjective: Back pain tremors and chills Objective: 03/21/18 12:04 Vital Signs - 8 hr 03/21/18 03/21/18 06:41 10:36 Temperature 97.3 F L 98.1 F Pulse Rate 54 L 78 Respiratory 16 18 Rate Blood Pressure 112/61 113/72 Laboratory Last Values WBC 7.2 K/mm3 (4.0-10.0) 03/18/18 06:00 RBC 4.77 M/mm3 (4.00-5.60) 03/18/18 06:00 Hgb 14.3 GM/dL (11.7-16.9) D 03/18/18 06:00 Hct 42.6 % (35.4-49) D 03/18/18 06:00 MCV 89.4 fl (80-96) 03/18/18 06:00 MCH 30.1 pg (25.7-33.7) 03/18/18 06:00 MCHC 33.7 g/dl (32.0-35.9) 03/18/18 06:00 RDW 13.6 % (11.9-15.9) 03/18/18 06:00 Plt Count 234 K/MM3 (134-434) 03/18/18 06:00 MPV 9.7 fl (7.5-11.1) 03/18/18 06:00 Sodium 141 mmol/L (136-145) 03/18/18 06:00 Potassium 5.0 mmol/L (3.5-5.1) 03/18/18 06:00 Chloride 105 mmol/L (98-107) 03/18/18 06:00 Carbon Dioxide 26 mmol/L (21-32) 03/18/18 06:00 Anion Gap 10 (8-16) 03/18/18 06:00 BUN 17 mg/dL (7-18) 03/18/18 06:00 Creatinine 1.2 mg/dL (0.7-1.3) D 03/18/18 06:00 Creat Clearance w eGFR > 60 (>60) 03/18/18 06:00 Random Glucose 90 mg/dL (74-106) 03/18/18 06:00 Calcium 9.0 mg/dL (8.5-10.1) 06/20/18 06:00 Total Bilirubin 0.4 mg/dL (0.2-1.0) 03/18/18 06:00 AST 16 U/L (15-37) 03/18/18 06:00 ALT 15 U/L (12-78) D 03/18/18 06:00 Alkaline Phosphatase 79 U/L (45-117) 03/18/18 06:00 Total Protein 7.5 g/dl (6.4-8.2) 03/18/18 06:00 Albumin 4.1 g/dl (3.4-5.0) 03/18/18 06:00 Urine Color Ltyellow 03/18/18 09:20 Urine Appearance Clear 03/18/18 09:20 Urine pH 6.0 (5.0-8.0) 03/18/18 09:20 Ur Specific [place] 1.014 (1.001-1.035) 03/18/18 09:20 Urine Protein Negative (NEGATIVE) 03/18/18 09:20 Urine Glucose (UA) Negative (NEGATIVE) 03/18/18 09:20 Urine Ketones Negative (NEGATIVE) 03/18/18 09:20 Urine Blood Negative (NEGATIVE) 03/18/18 09:20 Urine Nitrite Negative (NEGATIVE) 03/18/18 09:20 Urine Bilirubin Negative (<2.0 mg/dL) 03/18/18 09:20 Urine Urobilinogen Negative mg/dL (0.2-1.0) 03/18/18 09:20 Ur Leukocyte Esterase Negative (NEGATIVE) 03/18/18 09:20 RPR Titer Nonreactive (NONREACTIVE) 03/18/18 06:00 Labs noted Assessment: 03/21/18 12:05 Withdrawal sx Plan: Continue detox
[2018-03-21] MEDS: THIAMINE HCL 100 MG TABLET (FP) PO SCH (22:42)
[2018-03-21] MEDS: MELATONIN 5 MG TABLETS PO PRN (22:42)
[2018-03-22] MEDS ORDERED: METHADONE HCL 5 MG TABLET (FOR DETOX USE ONLY) PO SCH (06:00)
[2018-03-22 07:04] VITALS: BP 119/73; PULSE 57; TEMP 97.3
--- NOTE | 2018-03-22 08:58 | DS ---
[facility] Detox Discharge Summary Admission Date: 03/17/18 Discharge Date: 03/22/18 - History Present History: Alcohol Dependence, Opioid Dependence Additional Comments: 62 male admitted 03/17/18 for alcohol and opiate withdrawal sx completed alcohol and opiate detox regimen tolerated well denies opiate and alcohol withdrawal aftercare [facility] re[facility] - Physical Exam Results Vital Signs: Vital Signs Temperature 97.3 F L 03/22/18 07:04 Pulse Rate 57 L 03/22/18 07:04 Respiratory Rate 18 03/22/18 07:04 Blood Pressure 119/73 03/22/18 07:04 O2 Sat by Pulse Oximetry (%) Pertinent Admission Physical Exam Findings: alcohol and opiate withdrawal sx Vital Signs Temperature 97.3 F L 03/22/18 07:04 Pulse Rate 57 L 03/22/18 07:04 Respiratory Rate 18 03/22/18 07:04 Blood Pressure 119/73 03/22/18 07:04 O2 Sat by Pulse Oximetry (%) Laboratory Last Values WBC 7.2 K/mm3 (4.0-10.0) 03/18/18 06:00 RBC 4.77 M/mm3 (4.00-5.60) 03/18/18 06:00 Hgb 14.3 GM/dL (11.7-16.9) D 03/18/18 06:00 Hct 42.6 % (35.4-49) D 03/18/18 06:00 MCV 89.4 fl (80-96) 03/18/18 06:00 MCH 30.1 pg (25.7-33.7) 03/18/18 06:00 MCHC 33.7 g/dl (32.0-35.9) 03/18/18 06:00 RDW 13.6 % (11.9-15.9) 03/18/18 06:00 Plt Count 234 K/MM3 (134-434) 03/18/18 06:00 MPV 9.7 fl (7.5-11.1) 03/18/18 06:00 Sodium 141 mmol/L (136-145) 03/18/18 06:00 Potassium 5.0 mmol/L (3.5-5.1) 03/18/18 06:00 Chloride 105 mmol/L (98-107) 03/18/18 06:00 Carbon Dioxide 26 mmol/L (21-32) 03/18/18 06:00 Anion Gap 10 (8-16) 03/18/18 06:00 BUN 17 mg/dL (7-18) 03/18/18 06:00 Creatinine 1.2 mg/dL (0.7-1.3) D 03/18/18 06:00 Creat Clearance w eGFR > 60 (>60) 03/18/18 06:00 Random Glucose 90 mg/dL (74-106) 03/18/18 06:00 Calcium 9.0 mg/dL (8.5-10.1) 03/18/18 06:00 Total Bilirubin 0.4 mg/dL (0.2-1.0) 03/18/18 06:00 AST 16 U/L (15-37) 03/18/18 06:00 ALT 15 U/L (12-78) D 03/18/18 06:00 Alkaline Phosphatase 79 U/L (45-117) 03/18/18 06:00 Total Protein 7.5 g/dl (6.4-8.2) 03/18/18 06:00 Albumin 4.1 g/dl (3.4-5.0) 03/18/18 06:00 Urine Color Ltyellow 03/18/18 09:20 Urine Appearance Clear 03/18/18 09:20 Urine pH 6.0 (5.0-8.0) 03/18/18 09:20 Ur Specific [place] 1.014 (1.001-1.035) 03/18/18 09:20 Urine Protein Negative (NEGATIVE) 03/18/18 09:20 Urine Glucose (UA) Negative (NEGATIVE) 03/18/18 09:20 Urine Ketones Negative (NEGATIVE) 03/18/18 09:20 Urine Blood Negative (NEGATIVE) 03/18/18 09:20 Urine Nitrite Negative (NEGATIVE) 03/18/18 09:20 Urine Bilirubin Negative (<2.0 mg/dL) 03/18/18 09:20 Urine Urobilinogen Negative mg/dL (0.2-1.0) 03/18/18 09:20 Ur Leukocyte Esterase Negative (NEGATIVE) 03/18/18 09:20 RPR Titer Nonreactive (NONREACTIVE) 03/18/18 06:00 lab noted - Treatment Hospital Course: Detox Protocol Followed, Detoxed Safely, Responded well, Discharged Condition Good, Rehab Referral Accepted Patient has Accepted a Rehab Referral to: [facility] - Medication Discharge Medications: Ambulatory Orders NK [No Known Home Medication] 03/17/18 - Diagnosis (1) Alcohol dependence with uncomplicated withdrawal Current Visit: Yes Status: Acute (2) Nicotine dependence Current Visit: Yes Status: Acute Qualifiers: Nicotine product type: cigarettes Substance use status: in withdrawal Qualified Code(s): F17.213 - Nicotine dependence, cigarettes, with withdrawal (3) Opioid dependence with withdrawal Current Visit: Yes Status: Acute (4) Weight loss Current Visit: Yes Status: Acute (5) Positive PPD Current Visit: No Status: Resolved (6) Hepatitis C Current Visit: No Status: Resolved Qualifiers: Viral hepatitis chronicity: chronic Hepatic coma status: without hepatic coma Qualified Code(s): B18.2 - Chronic viral hepatitis C - AMA Did Patient Leave Against Medical Advice: No
== END 2018-03-22 09:13 | disposition home or self-care (01) | DRG 773 ==
LOC: YASAS 11:16 → Y6N 14:42
PROVIDERS: ADMIT Family Medicine Addiction Medicine; ATTEND Family Medicine Addiction Medicine
PROC: HZ2ZZZZ Detoxification Services for Substance Abuse Treatment (ICD-10-PCS; principal; 2018-03-17)
DX: F11.23 Opioid dependence with withdrawal (principal); F10.230 Alcohol dependence with withdrawal, uncomplicated; F14.20 Cocaine dependence, uncomplicated; F17.210 Nicotine dependence, cigarettes, uncomplicated; F31.9 Bipolar disorder, unspecified; B18.2 Chronic viral hepatitis C; K21.9 Gastro-esophageal reflux disease without esophagitis; R76.11 Nonspecific reaction to tuberculin skin test without active tuberculosis; G47.00 Insomnia, unspecified; Z87.898 Personal history of other specified conditions
CPT/HCPCS: 36415; 80053; 81003; 85027; 86593; 93005; 93010

== ENCOUNTER 2018-05-29 12:22 | Inpatient (IN) | payer BC ==
[2018-05-29 13:02] VITALS: BMI 22.1
--- NOTE | 2018-05-29 19:09 | HP ---
"COWS - Scale Resting Pulse: 1= [place] 81-100 Sweatin= Beads of Sweat on Face Restless Observation: 1= Difficult to Sit Still Pupil Size: 2= Moderately Dilated (Pupils = 5 mm) Bone or Joint Aches: 2= Severe Diffuse Aches Runny Nose/ Eye Tearin= Runny Nose/Eyes GI Upset > 30mins: 2= Nausea/Diarrhea (No diarrhea.) Tremor Observation: 2= Slight Tremor Visible Yawning Observation: 0= None Anxiety or Irritability: 1=Feels Anxious/Irritable Goose Flesh Skin: 0=Smooth Skin COWS Score: 16 CIWA Score - CIWA Score Nausea/Vomitin Muscle Tremors: 4-Moderate,w/Arms Extend Anxiety: 1-Mildly Anxious Agitation: 1-Slight > Activity Paroxysmal Sweats: 4-Forehead w/Sweat Beads Orientation: 0-Oriented Tacttile Disturbances: 0-None Auditory Disturbances: 0-None Visual Disturbances: 0-None Headache: 2-Mild CIWA-Ar Total Score: 14 Admission [facility] Chief Complaint: Here for alcohol and heroin withdrawal. Allergies/Adverse Reactions: Allergies Allergy/AdvReac Type Severity Reaction Status Date / Time No Known Allergies Allergy Verified 05/29/18 13:34 History of Present Illness: Hx alcohol use since age 15 and heroin use since age 15. Nicotine use since age. Denies hx blackouts or seizures. Denies benzo or methadone use. Was sober from 2000 - 2011 while on a methadone program. Denies significant PMH. Interested in Vivitrol injections for future. Search Terms: Ruperto Haiderr, 1955 Search Date: 05/29/2018 07:03:53 PM The Drug Utilization Report below displays all of the controlled substance prescriptions, if any, that your patient has filled in the last twelve months. The information displayed on this report is compiled from pharmacy submissions to the Department, and accurately reflects the information as submitted by the pharmacies. This report was requested by: Aditi Montano | Reference #: [id number] There are no results for the search terms that you entered. Exam Limitations: No Limitations - Ebola screening Have you traveled outside of the country in the last 21 days: No Have you had contact with anyone from an Ebola affected area: No Have you been sick,other than usual withdrawal symptoms: No Do you have a fever: No - Review of Systems Constitutional: Chills, Diaphoresis, Changes in sleep (Difficulty falling asleep and wakes up w/ cravings), Unintentional Wgt. Loss (10 lbs r/t poor food intake r/t drug use) EENT: reports: Blurred Vision (Wears glasses), Nose Congestion (r/t withdrawal) Respiratory: reports: No Symptoms reported, Other (Hx TB immunization as a child ) Cardiac: reports: No Symptoms Reported GI: reports: Nausea (r/t withdrawal), Indigestion (acid reflux x 2 days.) : reports: No Symptoms Reported Musculoskeletal: reports: Joint Stiffness (r/t withdrawal) Integumentary: reports: No Symptoms Reported Neuro: reports: Headache (r/t withdrawal), Tremors (r/t withdrawal) Endocrine: reports: No Symptoms Reported Hematology: reports: No Symptoms Reported Psychiatric: reports: Orientated x3, Agitated, Anxious, Depressed (Denies thoughts of harming self or others.) Patient History - Patient Medical History Hx Anemia: No Hx Asthma: No Hx Chronic Obstructive Pulmonary Disease (COPD): No Hx Cancer: No Hx Cardiac Disorders: No Hx Congestive Heart Failure: No Hx Hypertension: No Hx Hypercholesterolemia: No Hx Pacemaker: No HX Cerebrovascular Accident: No Hx Seizures: No Hx Diabetes: No Hx Gastrointestinal Disorders: No Hx Liver Disease: No Hx Genitourinary Disorders: No Hx Sexually Transmitted Disorders: No Hx Renal Disease (ESRD): No Hx Thyroid Disease: No Hx Human Immunodeficiency Virus (HIV): No (2014 LAST NEGATIVE) Hx Hepatitis C: Yes (TREATED ) Hx Depression: Yes Hx Suicide Attempt: No Hx Bipolar Disorder: No Hx Schizophrenia: No - Patient Surgical History Past Surgical History: Yes Hx Neurologic Surgery: No Hx Cataract Extraction: No Hx Cardiac Surgery: No Hx Lung Surgery: No Hx Breast Surgery: No Hx Breast Biopsy: No Hx Abdominal Surgery: No Hx Appendectomy: No Hx Cholecystectomy: No Hx Genitourinary Surgery: No Hx Section: No Hx Orthopedic Surgery: No Other Surgical History: NASAL SX.IN 2008 Anesthesia Reaction: No - PPD History Previous Implant?: Yes Documented Results: Positive w/proof Implanted On Prior R Admission?: Yes Date: 02/06/18 PPD to be Administered?: No - Reproductive History Patient is a Female of Child Bearing Age (11 -55 yrs old): No - Smoking Cessation Smoking history: Current every day smoker Have you smoked in the past 12 months: Yes Aproximately how many cigarettes per day: 20 Hx Chewing Tobacco Use: No Initiated information on smoking cessation: Yes 'Breaking Loose' booklet given: 05/29/18 - Substance & Tx. History Hx Alcohol Use: Yes Hx Substance Use: Yes Substance Use Type: Alcohol, Heroin Hx Substance Use Treatment: Yes (detoxes. [facility] ([id number])) - Substances Abused Alcohol Route: Oral Frequency: Daily Amount used: 20 beers (12Oz) Age of first use: 15 Date of Last Use: 05/29/18 (12 n ) Heroin Route: Inhalation Frequency: Daily Amount used: 1 bundles Age of first use: 15 Date of Last Use: 05/29/18 (12 n) Family Disease History - Family Disease History Family Disease History: Other: Father (ALCOHOL), Brother (DRUGS) Admission Physical Exam [facility] - Vital Signs Vital Signs: Vital Signs - 24 hr 05/29/18 12:59 Temperature 97.6 F Pulse Rate 65 Respiratory 19 Rate Blood Pressure 139/84 - Physical General Appearance: Yes: Appropriately Dressed, Moderate Distress, Tremorous, Irritable, Sweating, Anxious HEENTM: Yes: EOMI, Hearing grossly Normal, Normocephalic, Normal Voice, [place] ( Pupils = 5 mm) Respiratory: Yes: Chest Non-Tender, Lungs Clear, Normal Breath Sounds, No Respiratory Distress Neck: Yes: No masses,lesions,Nodules, Supple Breast: Yes: Breast Exam Deferred Cardiology: Yes: Regular Rhythm, Regular Rate, S1, S2 Abdominal: Yes: Non Tender, Flat, Soft, Increased Bowel Sounds Genitourinary: Yes: Within Normal Limits Back: Yes: Normal Inspection Musculoskeletal: Yes: full range of Motion, Gait Steady Extremities: Yes: Normal Capillary Refill, Normal Range of Motion, Non-Tender, Tremors (of hands w/ arms extended) Neurological: Yes: analysis internship II-XII NML intact, Fully Oriented, Motor Strength 5/5, Normal Mood/Affect Integumentary: Yes: Normal Color, Dry, Warm Lymphatic: Yes: Within Normal Limits - Diagnostic (1) Alcohol dependence with uncomplicated withdrawal Current Visit: Yes Status: Acute (2) Opioid dependence with withdrawal Current Visit: Yes Status: Acute Cleared for Admission [facility] - Detox or Rehab [facility] Level of Care: Medically Managed Detox Regimen/Protocol: Methadone/Librium BHS Breath Alcohol Content Breath Alcohol Content: 0 Urine Drug Screen - Results Drug Screen Negative: No Urine Drug Screen Results: OPI-Opiates, BZO-Benzodiazepines, MTD-Methadone"
[2018-05-29] MEDS ORDERED: LOPERAMIDE HCL 2 MG CAPSULE PO PRN (19:30)
[2018-05-29] MEDS ORDERED: guaiFENesin/D-METHORPHAN HB 10 ML UNIT-DOSE CUPS PO PRN (19:30)
[2018-05-29] MEDS ORDERED: P-EPHED 60MG/TRIPROLIDI 2.5MG TABLET PO PRN (19:30)
[2018-05-29] MEDS ORDERED: METHADONE HCL 10 MG TABLET (FOR DETOX USE ONLY) PO ONE ×2 (19:30→23:00)
[2018-05-29] MEDS ORDERED: IBUPROFEN 400 MG TABLET (FP) PO PRN (19:30)
[2018-05-29] MEDS ORDERED: ACETAMINOPHEN 325 MG TABLET (FP) PO PRN (19:30)
[2018-05-29] MEDS ORDERED: MAGNESIUM HYDROX 2400MG/30ML ORAL SUSPENSION 30 ML CUP PO PRN (19:30)
[2018-05-29] MEDS ORDERED: chlordiazePOXIDE HCL 25 MG CAPSULE PO ONE (19:30)
[2018-05-29] MEDS ORDERED: NICOTINE POLACRILEX 2 MG GUM BUC PRN (19:30)
[2018-05-29] MEDS ORDERED: chlordiazePOXIDE HCL 25 MG CAPSULE PO PRN (19:30)
[2018-05-29] MEDS ORDERED: MENTHOL/PHENOL 1 EACH UD MM PRN (19:30)
[2018-05-29] MEDS ORDERED: MAGNESIUM CITRATE 300 ML BOTTLE PO PRN (19:30)
[2018-05-29] MEDS ORDERED: hydrOXYzine PAMOATE 50 MG CAPSULE (FP) PO PRN (19:30)
[2018-05-29] MEDS ORDERED: MELATONIN 5 MG TABLETS PO PRN (22:00)
[2018-05-29] MEDS: THIAMINE HCL 100 MG TABLET (FP) PO SCH (22:07)
[2018-05-29] MEDS: chlordiazePOXIDE HCL 25 MG CAPSULE PO SCH (22:08)
[2018-05-29 23:28] LABS: URINE APPEARANCE TURBID; URINE BILIRUBIN NEGATIVE (<2.0 mg/dL); URINE COLOR AMBER; URINE GLUCOSE (UA) NEGATIVE (NEGATIVE); URINE KETONE TRACE (NEGATIVE); URINE LEUK ESTERASE NEGATIVE (NEGATIVE); URINE NITRITE NEGATIVE (NEGATIVE); URINE PROTEIN NEGATIVE (NEGATIVE)
[2018-05-30] MEDS: chlordiazePOXIDE HCL 25 MG CAPSULE PO SCH ×3 (05:25→17:20)
[2018-05-30] MEDS: MAG HYDROX/AL HYDROX/SIMETH 30 ML UNIT-DOSE CUP PO PRN ×2 (08:22→16:47)
[2018-05-30] MEDS ORDERED: METHADONE HCL 10 MG TABLET (FOR DETOX USE ONLY) PO SCH (10:00)
[2018-05-30] MEDS: PRENATAL VITAMINS W/ FOLIC ACID TABLET (FP) PO SCH (10:05)
[2018-05-30] MEDS: NICOTINE 21 MG/24 HOURS TOPICAL PATCH TD SCH (10:06)
--- NOTE | 2018-05-30 12:26 | CONSULT ---
[facility] Psychiatric Consult - Data Date of interview: 05/30/18 Admission source: [facility] Identifying data: Readmission to [facility] for this 62 y/o male, self- referred for detoxification treatment (heroin,alcohol dependence).Patient is single without dependents,domiciled,uneployed and supported on Public Assistance.Mr Salazar is a hostile and questionable historian. Substance Abuse History: Patient declined to discuss his substance abuse profile.History taken from chart. As per [facility] report : Smoking history: Current every day smoker. Have you smoked in the past 12 months: Yes. Aproximately how many cigarettes per day: 20. Hx Chewing Tobacco Use: No. Initiated information on smoking cessation: Yes. 'Breaking Loose' booklet given: . - Substance & Tx. History. Hx Alcohol Use: Yes. Hx Substance Use: Yes. Substance Use Type: Alcohol, Heroin. Hx Substance Use Treatment: Yes (detoxes. [facility] ([id number])). - Substances Abused. Alcohol. Route: Oral. Frequency: Daily. Amount used: 20 beers (12Oz). Age of first use: 15. Date of Last Use: 05/29/18 (12 n ). Heroin. Route: Inhalation. Frequency: Daily. Amount used: 1 bundles. Age of first use: 15. Date of Last Use: 05/29/18 (12 n) Medical History: Patient declines to provide information.History extracted from current H+P report : hepatitis C and a history of surgery (nasal septum). Psychiatric History: Patient denies. Physical/Sexual Abuse/Trauma History: Not discussed. Additional Comment: Urine Drug Screen Results: OPI-Opiates, BZO-Benzodiazepines , MTD-Methadone.Noted. Mental Status Exam - Mental Status Exam Alert and Oriented to: Time, Place, Person Cognitive Function: Grossly Intact Patient Appearance: Disheveled Mood: Angry, Hostile, Withdrawn, Irritable Affect: Mood Congruent Patient Behavior: Uncooperative, Resitive to Care Speech Pattern: Clear Voice Loudness: Normal Thought Process: Goal Oriented Thought Disorder: Not Present Hallucinations: Denies Suicidal Ideation: Denies Homicidal Ideation: Denies Insight/Judgement: Poor Sleep: Well (as per self-report) Appetite: Fair Muscle strength/Tone: Normal Gait/Station: Normal Psychiatric Findings - Problem List ([place] 1, 2,3) (1) Alcohol dependence with uncomplicated withdrawal Current Visit: Yes Status: Acute (2) Opioid dependence with withdrawal Current Visit: Yes Status: Acute (3) Nicotine dependence Current Visit: Yes Status: Acute Qualifiers: Nicotine product type: cigarettes Substance use status: in withdrawal Qualified Code(s): F17.213 - Nicotine dependence, cigarettes, with withdrawal - Initial Treatment Plan Initial Treatment Plan: Psychoeducation when patient becomes more cooperative.Detoxification in progress.Observation.
[2018-05-30] MEDS ORDERED: PANTOPRAZOLE 20 MG TABLET (FP) PO SCH (12:45)
--- NOTE | 2018-05-30 12:52 | PN ---
[facility] Progress Note Note: received pharmacist call that the patient has two protonix order
[2018-05-30] MEDS ORDERED: RANITIDINE HCL 150 MG TABLET (FP) PO ONE (17:30)
[2018-05-30] MEDS ORDERED: diazePAM 5 MG TABLET PO ONE (17:30)
--- NOTE | 2018-05-30 17:50 | PN ---
[facility] CIWA - CIWA Score Nausea/Vomitin-Mild Nausea/No Vomiting Muscle Tremors: 3 Anxiety: 4-Mod. Anxious/Guarded Agitation: 3 Paroxysmal Sweats: 3 Orientation: 0-Oriented Tacttile Disturbances: 0-None Auditory Disturbances: 0-None Visual Disturbances: 0-None Headache: 0-None Present CIWA-Ar Total Score: 14 [facility] COWS - Scale Resting Pulse: 1= [place] 81-100 Sweatin= Chills/Flushing Restless Observation: 1= Difficult to Sit Still Pupil Size: 1= Pupils >than Normal Bone or Joint Aches: 2= Severe Diffuse Aches Runny Nose/ Eye Tearin= Runny Nose/Eyes GI Upset > 30mins: 1= Stomach Cramp Tremor Observation of Outstretched Hands: 2= Slight Tremor Visible Yawning Observation: 0= None Anxiety or Irritability: 2=Irritable/Anxious Goose Flesh Skin: 3=Piloerection COWS Score: 16 S Progress Note (SOAP) Subjective: pt states he has stomach reflux- would like zantac, says he does not like librium- prefers valium, not feeling well today- Obj: Vital Signs - 24 hr 05/29/18 05/30/18 05/30/18 21:11 00:30 03:30 Temperature 98.3 F Pulse Rate 68 Respiratory 16 18 18 Rate Blood Pressure 144/79 05/30/18 05/30/18 05/30/18 06:23 09:54 11:10 Temperature 98.3 F 98.5 F 98.5 F Pulse Rate 58 L 61 61 Respiratory 18 18 18 Rate Blood Pressure 118/73 104/61 104/61 05/30/18 13:35 Temperature 97.4 F L Pulse Rate 82 Respiratory 18 Rate Blood Pressure 141/89 Laboratory Tests 05/29/18 20:27 Urine Color [place] Urine Appearance Turbid Urine pH 5.0 Ur Specific [place] 1.029 Urine Protein Negative Urine Glucose (UA) Negative Urine Ketones Trace H Urine Blood Negative Urine Nitrite Negative Urine Bilirubin Negative Urine Urobilinogen 2.0 Ur Leukocyte Esterase Negative Ass/Plan: Here for alcohol and heroin withdrawal: continue detox protocols, added valium and zantac- d/c librium. d/w pt that he can ask for prn doses of medications
[2018-05-30] MEDS ORDERED: TRIMETHOBENZAMIDE HCL 200MG/2ML INJ IM ONE (19:00)
[2018-05-30] MEDS ORDERED: METHADONE DETOX 10 MG/1 ML [20ML VIAL] IM ONE (21:28)
--- NOTE | 2018-05-30 21:29 | PN ---
[facility] Progress Note Note: seen for ongoing c/o n/v and worsening abd cramps not relieved with antiemetics, antacids and pain medication. client c/o abd cramping 07/08, worsening irritablity, sweats and shakes. "I took everything and nothing is helping" SEEN LYING IN BED IN MODERATE DISTRESS, IRRITABLE, SWEATS, TOSSING AND TURNING IN BED A/O X3 CV- RRR LUNGS- CTAB ABD- FLAT, SOFT, NT, NL-BS. Vital Signs - 24 hr 05/30/18 05/30/18 05/30/18 09:54 11:10 13:35 Temperature 98.5 F 98.5 F 97.4 F L Pulse Rate 61 61 82 Respiratory 18 18 18 Rate Blood Pressure 104/61 104/61 141/89 05/30/18 05/30/18 05/31/18 18:00 22:41 00:30 Temperature 97.9 F 97.2 F L Pulse Rate 52 L 58 L Respiratory 16 20 18 Rate Blood Pressure 113/69 162/80 05/31/18 06:05 Temperature 100.2 F H Pulse Rate 62 Respiratory 18 Rate Blood Pressure 165/88 A- WITHDRAWAL SX'S P- C/W DETOX METHADONE 10MG IM X 1
[2018-05-30] MEDS: THIAMINE HCL 100 MG TABLET (FP) PO SCH (22:54)
[2018-05-30] MEDS: RANITIDINE HCL 150 MG TABLET (FP) PO SCH (22:54)
[2018-05-30] MEDS: diazePAM 5 MG TABLET PO SCH (22:54)
[2018-05-30] MEDS ORDERED: chlordiazePOXIDE HCL 25 MG CAPSULE PO SCH (23:00)
[2018-05-31] MEDS: diazePAM 5 MG TABLET PO PRN ×2 (03:31→10:08)
[2018-05-31] MEDS: diazePAM 5 MG TABLET PO SCH (05:26)
[2018-05-31] MEDS ORDERED: PANTOPRAZOLE 20 MG TABLET (FP) PO SCH (10:00)
[2018-05-31] MEDS ORDERED: METHADONE HCL 5 MG TABLET (FOR DETOX USE ONLY) PO SCH (10:00)
[2018-05-31] MEDS: NICOTINE 21 MG/24 HOURS TOPICAL PATCH TD SCH (10:08)
[2018-05-31] MEDS: RANITIDINE HCL 150 MG TABLET (FP) PO SCH (10:08)
[2018-05-31] MEDS: PRENATAL VITAMINS W/ FOLIC ACID TABLET (FP) PO SCH (10:08)
[2018-05-31] MEDS ORDERED: cloNIDine HCL 0.1 MG TABLET PO SCH (10:15)
[2018-05-31 10:39] VITALS: BP 148/84; PULSE 75; TEMP 97.3
--- NOTE | 2018-05-31 10:54 | PN ---
[facility] CIWA - CIWA Score Nausea/Vomitin-No Nausea/No Vomiting Muscle Tremors: 4-Moderate,w/Arms Extend Anxiety: 4-Mod. Anxious/Guarded Agitation: 4-Moderately Restless Paroxysmal Sweats: No Perspiration Orientation: 0-Oriented Tacttile Disturbances: 0-None Auditory Disturbances: 0-None Visual Disturbances: 0-None Headache: 0-None Present CIWA-Ar Total Score: 12 [facility] COWS - Scale Resting Pulse: 0= [place] 80 or Below Sweatin= Chills/Flushing Restless Observation: 3= Extraneous Movement Pupil Size: 0= Normal to Room Light Bone or Joint Aches: 4=Acute Joint/Muscle Pain Runny Nose/ Eye Tearin= Nasal Congestion GI Upset > 30mins: 1= Stomach Cramp Tremor Observation of Outstretched Hands: 1= Tremor [place], Not Seen Yawning Observation: 1= 1-2x During Session Anxiety or Irritability: 2=Irritable/Anxious Goose Flesh Skin: 0=Smooth Skin COWS Score: 14 [facility] Progress Note (SOAP) Subjective: ANXIETY,SWEATS,CHILLS, N/V, MUSCLE AND JOINT PAINS, INTERMITTENT SLEEP, Objective: 05/31/18 10:52 Vital Signs 05/31/18 05/31/18 06:05 10:38 Temperature 100.2 F H 97.3 F L Pulse Rate 62 75 Respiratory 18 18 Rate Blood Pressure 165/88 148/84 Laboratory Tests 05/29/18 20:27 Urine Color [place] Urine Appearance Turbid Urine pH 5.0 Ur Specific [place] 1.029 Urine Protein Negative Urine Glucose (UA) Negative Urine Ketones Trace H Urine Blood Negative Urine Nitrite Negative Urine Bilirubin Negative Urine Urobilinogen 2.0 Ur Leukocyte Esterase Negative OTHER LABS PENDING Assessment: 05/31/18 10:53 WITHDRAWAL SX Plan: CONTINUE DETOX CLONIDINE AND FLEXERIL DIRECTED. INCREASE PO FLUIDS
[2018-05-31] MEDS ORDERED: CYCLOBENZAPRINE HCL 10 MG TABLET (FP) PO SCH (14:00)
[2018-05-31] MEDS ORDERED: chlordiazePOXIDE 5 MG CAPSULE PO SCH (23:00)
[2018-06-01] MEDS ORDERED: diazePAM 5 MG TABLET PO SCH (10:00)
--- NOTE | 2018-06-01 14:22 | EKG ---
Test Reason : Blood Pressure : / mmHG Vent. Rate : 058 BPM Atrial Rate : 058 BPM P-R Int : 134 ms QRS Dur : 076 ms QT Int : 422 ms P-R-T Axes : 061 -20 045 degrees QTc Int : 414 ms SINUS BRADYCARDIA OTHERWISE NORMAL ECG WHEN COMPARED WITH ECG OF 17-MAR-2018 15:33, NO SIGNIFICANT CHANGE WAS FOUND Confirmed by STEVE GILL MD ([id number]) on 06/01/2018 2:21:57 PM Referred By: Confirmed By:STEVE GILL MD
[2018-06-01] MEDS ORDERED: chlordiazePOXIDE HCL 10 MG CAPSULE PO SCH (23:00)
[2018-06-02] MEDS ORDERED: METHADONE HCL 10 MG TABLET (FOR DETOX USE ONLY) PO SCH (10:00)
[2018-06-03] MEDS ORDERED: METHADONE HCL 5 MG TABLET (FOR DETOX USE ONLY) PO SCH (06:00)
[2018-06-03] MEDS ORDERED: diazePAM 5 MG TABLET PO SCH (10:00)
== END 2018-05-31 11:10 | disposition left against medical advice (07) | DRG 770 ==
LOC: YASAS 12:22 → Y3N 17:52
PROC: HZ2ZZZZ Detoxification Services for Substance Abuse Treatment (ICD-10-PCS; principal; 2018-05-29)
DX: F11.23 Opioid dependence with withdrawal (principal); F10.230 Alcohol dependence with withdrawal, uncomplicated; F17.213 Nicotine dependence, cigarettes, with withdrawal; R63.4 Abnormal weight loss; Z68.22 Body mass index [BMI] 22.0-22.9, adult
CPT/HCPCS: 81003; 93005; 93010; J0735